=== PATIENT | female | born 1980 | race Caucasian/White ===

== ENCOUNTER 2019-04-22 08:38 | Emergency (ER) | payer MEDICAID ==
[~2019-04-22] VITALS: Ht 170.2 cm; Wt 53.1 kg
[2019-04-22 08:45] VITALS: BP_SYST 111
[2019-04-22 09:57] VITALS: BP_SYST 111
== END 2019-04-22 09:57 | disposition home or self-care (01) ==
LOC: SED 08:38
DX: Z02.89 Encounter for other administrative examinations (principal); F17.200 Nicotine dependence, unspecified, uncomplicated; Z86.19 Personal history of other infectious and parasitic diseases; Z91.040 Latex allergy status; Z91.011 Allergy to milk products
CPT/HCPCS: 99283